=== PATIENT | male | born 1945 | race Caucasian/White ===

== ENCOUNTER → 2023-02-16 13:13 | Outpatient (BNVA) | payer MEDICARE, SELFPAY | PROVIDERS: PCP Family Medicine; Referring Provider Family Medicine; Visit Provider Internal Medicine Cardiovascular Disease | DX: J44.9 Chronic obstructive pulmonary disease, unspecified (principal); N18.30 Chronic kidney disease, stage 3 unspecified; N28.89 Other specified disorders of kidney and ureter; I50.22 Chronic systolic (congestive) heart failure; Z87.891 Personal history of nicotine dependence | CPT/HCPCS: 99203 ==

== ENCOUNTER 2023-10-13 02:19 | Observation (INO) | payer MEDICARE, SELFPAY ==
[2023-10-13] VITALS (10 sets, daily range): BP systolic 116–156; BP diastolic 67–83; PULSE 74–94; RESP 16–18; TEMP 36.3–37; O2SAT 90–96
--- NOTE | 2023-10-13 00:11 | P.HP_ITS ---
Providers/Chief Complaint 2 Admitting Physician: Paul Gunn MD Primary Care Provider: Tyree Borja History of Present Illness Nic Santizo is a 78 year old male who presented to [facility] after getting CT scan of head which was ordered by the primary care physician for his slurred speech and headache, he has been experiencing slurred speech for 3 days and headache for last 7 days without any fever, nausea or vomiting he has been getting weaker. [facility] Dr. Sánchez called me to admit the patient because teleneurologist recommended finishing the workup for stroke. As per my conversation with the [facility] patient has normal CBC and BMP with normal chest x-ray patient is alert oriented x 3 NIH score of 2 for slurred speech and mild weakness he saturating 98% room air heart rate in 80s blood pressure 112/[address] showed chronic ischemic changes he was deemed not a tPA candidate At the time of evaluation patient is not endorsing any significant sign of slurred speech, he is stating that his headache is not bad, he does not have any focal deficit He is experiencing wheezing Stating that he currently is not smoking does not use oxygen, uses a cane to ambulate at home, lives with his , patient is denying chest pain, diarrhea, diabetes Labs reviewed from other hospital, creatinine was 1.8 I will not be able to CTA head and neck at this point Chest x-ray showed left lower lobe atelectasis without significant infiltrate or consolidations Review of Systems 2 Const: Denies: fever(s) Eyes: Denies: change in vision ENMT: Denies: throat pain Card: Denies: chest pain Resp: Reports: dyspnea GI: Denies: abdominal pain Neuro: Reports: headache(s) and Slurred speech present Medications/Allergies Home Medications Medication Instructions Recorded Confirmed Last Taken Type albuterol sulfate 90 mcg/actuation 2 puff inhalation Q6H PRN wheezing 02/16/23 10/13/23 Unknown History aerosol inhaler or shortness of breath aspirin 81 mg tablet,delayed 81 mg PO DAILY 02/16/23 10/13/23 Unknown History release (Adult Aspirin Regimen) atorvastatin 40 mg tablet 40 mg PO BEDTIME 02/16/23 10/13/23 Unknown History fluticasone propionate 50 2 spray intranasal DAILY PRN Nasal 02/16/23 10/13/23 Unknown History mcg/actuation nasal Congestion spray,suspension lisinopril 20 mg tablet 20 mg PO DAILY 02/16/23 10/13/23 Unknown History nitroglycerin 0.4 mg sublingual 0.4 mg sublingual Q5M PRN Chest 02/16/23 10/13/23 Unknown History tablet Pain omeprazole 40 mg capsule,delayed 40 mg PO DAILY 02/16/23 10/13/23 Unknown History release tamsulosin 0.4 mg capsule 0.8 mg PO BEDTIME 02/16/23 10/13/23 Unknown History amlodipine 5 mg tablet 5 mg PO DAILY 10/13/23 10/13/23 Unknown History cyclobenzaprine 5 mg tablet 5 mg PO TID PRN spasm or pain 10/13/23 10/13/23 Unknown History metoprolol succinate 25 mg 25 mg PO DAILY 10/13/23 10/13/23 Unknown History tablet,extended release 24 hr Allergies Allergy/AdvReac Type Severity Reaction Status Date / Time No Known Allergies Allergy Verified 10/13/23 02:56 PFSH Acute 2 PFSH: Medical History COPD (chronic obstructive pulmonary disease) Right renal mass Chronic systolic (congestive) heart failure Stage 3 chronic kidney disease Social History Smoking and tobacco/nicotine status: former use of tobacco/nicotine Quit status (tobacco/nicotine): has quit using Year quit tobacco: 40 plus years Alcohol intake: current Alcohol intake frequency: few times a month Alcohol type: beer Substance/Drug Use: never Physical Exam 2 Narrative: NIH 1 for mild slurring of speech, Nonfocal neuroexam GCS 15 Able to move his extremities Short attention span Patient is wanting to sleep during my evaluation Complaining of headache Do not see any active signs of meningitis S1, S2 , Active wheezing Currently on room air Distended abdomen Morbid obesity edema of legs Data 10/13/23 05:17 10/13/23 05:17 A&P Assessment and plan (1) Stroke: (2) Stage 3 chronic kidney disease: (3) COPD (chronic obstructive pulmonary disease): Plan Slurred speech and headache for last 3 to 5 days Patient was evaluated by teleneurologist DR GARCIA at [facility] who recommended MRI and stroke workup Will request MRI, MRV Will request PT OT and ST Permissive hypertension for next 24 hours Continue aspirin and atorvastatin I will not be able to get CTA head and neck because creatinine is 1.8 NIH is 1 Will check B12, hemoglobin A1c, EKG and troponin Hypertension: Patient takes lisinopril, metoprolol and amlodipine Holding lisinopril for now Morbid obesity, underlying COPD? Patient is actively wheezing Add IV steroids for now Add incentive spirometer, atelectasis evident on chest x-ray Patient lives with his , uses a cane Will keep him on pur?ed diet Full code DVT prophylaxis on board Attestations 2 Medical Necessity Statement*: Anticipating discharge within 48 hours Diagnoses Stroke I63.9 Stage 3 chronic kidney disease N18.30 COPD (chronic obstructive pulmonary disease) J44.9
--- NOTE | 2023-10-13 00:14 | MR_ITS ---
WS: [id number] MR VENOGRAPHY HEAD WITHOUT GADOLINIUM ENHANCEMENT INDICATION: Headache 7 days TECHNIQUE: MR venography without gadolinium enhancement FINDINGS: Normal sagittal sinus. Straight sinus is patent. Normal internal cerebral veins. RIGHT transverse and sigmoid sinuses are patent. Hypoplastic normal variant LEFT sigmoid and transverse sinuses. MR/[place] [id number] IMPRESSION: 1. No evidence of dural sinus thrombosis
--- NOTE | 2023-10-13 00:14 | MR_ITS ---
WS: [id number] MRI HEAD WITHOUT CONTRAST TECHNIQUE: Sagittal T1, T2 axial, T2 axial FLAIR, axial and coronal T1 images, axial susceptibility w eighted imaging, axial diffusion weighted images, and coronal T2 images were obtained. CLINICAL INFORMATION: CVA COMPARISON: None. FINDINGS: Multiple patchy foci of restricted diffusion within the RIGHT centrum semiovale extending into the RI GHT frontal and parietal lobes. Additional patchy foci of restricted diffusion involving the posterio r RIGHT temporal lobe. Findings are compatible with multiple acute foci of ischemia suspicious for em bolic etiology. Mild associated edema associated with the areas of acute ischemia. No significant mass effect or midl ine shift. Advanced chronic small vessel changes with multiple chronic lacunar infarcts in the perive ntricular white matter. Moderate parenchymal volume loss. Chronic lacunar infarcts in the jagdish. Chron ic lacunar infarcts in the cerebellum. Chronic cortical infarcts in the LEFT cerebellum with associat ed encephalomalacia and gliosis. No hemosiderin on the susceptibly weighted images. Normal optic chiasm and pituitary infundibulum. Mo derate symmetric atrophy temporal lobes and hippocampal formations.. MR/MR head wo con* [id number] IMPRESSION: 1. Numerous scattered foci of acute ischemia involving the RIGHT frontal and p arietal lobes and RIGHT centrum semiovale. This extends into the RIGHT temporal lobe worse involving the dorsal superior RIGHT temporal lobe. Findings suspici ous for embolic etiology. 2. No significant mass effect or midline shift. 3. Advanced vessel changes with mild to moderate parenchymal volume loss. 4. Numerous chronic infarcts described above. Notified Dr. Ndiaye at 10/13/2023 11:11 AM. Also note accompanying MR venogram was not performed due to patient motion
--- NOTE | 2023-10-13 03:25 | PC.NURSE ---
Dr. Gunn notified that patient has arrived to the floor.
--- NOTE | 2023-10-13 03:35 | PC.NURSE ---
Multivitamin and Lasix both listed on patient's home medication list from [facility]. Patient's states that he does not take these anymore.
[2023-10-13 06:05] LABS: Basophils # 0.1 10^3/uL (0.0-0.1); Basophils % 0.6 %; Eosinophils # 0.6 10^3/uL (0.0-0.8); Eosinophils % 5.6 %; Hematocrit 47.8 % (37-53); Lymphocytes # 2.8 10^3/uL (0.8-4.8); Mean Corpuscular HGB Conc 33.9 g/dL (30-55); Mean Corpuscular Hemoglobin 30.5 pg (27-33); Mean Platelet Volume 12.6 fL (7.4-10.4); Monocytes # 0.9 10^3/uL (0.2-0.9); Monocytes % 8.8 %; Neutrophils # 5.42 10^3/uL (1.8-7.7); Neutrophils % 55.4 %; Nucleated Red Blood Cells % 0 %; Platelet Count 166 10^3/cmm (157-399); Red Blood Count 5.31 10^6/uL (3.85-5.65); Red Cell Distribution Width 12.5 % (12.1-15.1); White Blood Count 9.79 10^3/uL (3.29-11.43)
--- NOTE | 2023-10-13 06:18 | USCV_ITS ---
Nic Santizo Age: 78 Gender: M : 1945 Exam Date: 10/13/2023 07:50 Ordering Phys: Paul Gunn MD Technologist: SURESH Exam Location: [facility] – [place] Indication: CVA. ECHO WITH BUBBLES BP: 147 / 77 HR: Rhythm: Sinus Technical Quality: MEASUREMENTS (Male / Female) Normal Values 2D ECHO LVOT Diameter 2.0 cm LV Ejection Fraction MOD 2C 66.3 % LV Ejection Fraction 2C AL 67.0 % RA Systolic Volume 4C AL 40.8 ml RA Systolic Volume 4C MOD 39.1 ml LA Sys Volume AL 54.2 cm cubed LA Sys Volume Index AL 20.5 cm cubed/m squared IVC Diameter 1.5 cm DOPPLER AV Peak Velocity 213.0 cm/s LVOT Peak Velocity 95.0 cm/s AV Area Cont Eq vti 1.3 cm squared AV Area Cont Eq pk 1.4 cm squared MV Peak Velocity 104.0 cm/s MV Area PHT 3.0 cm squared Mitral E to A Ratio 0.8 TR Peak Velocity 119.0 cm/s TR Peak Gradient 5.7 mmHg TR Mean Velocity 94.0 cm/s TR Mean Gradient 3.8 mmHg TR Velocity Time Integral 35.5 cm TV Peak E Velocity 47.0 cm/s Right Atrial Pressure 3.0 mmHg Pulmonary Artery Systolic Pressu 8.7 mmHg PV Peak Velocity 74.0 cm/s RV Ejection Time 0.3 s FINDINGS Left Ventricle Possibly normal LV size and ejection fraction around 65%. Segmental wall motion analysis difficult because of the poor ultrasonic window Right Ventricle Possibly of normal size Right Atrium Possibly normal size Left Atrium Mildly dilated Mitral Valve No gross abnormalities noted Aortic Valve Thickened aortic valve. Tricuspid Valve Tricuspid valve not well visualized. Pulmonic Valve Pulmonic valve not well visualized. Pericardium No pericardial effusion. Aorta Normal aortic annulus size. IVC Inferior vena cava not visualized. CONCLUSIONS Possibly normal LV size and ejection fraction around 65%. Segmental wall motion analysis difficult because of the poor ultrasonic window. Mildly dilated left atrium. Features of aortic valve sclerosis There is no pericardial effusion. Technically difficult study because of the poor ultrasonic window. Dr Jono Rivas MD [facility] (Electronically Signed) Final Date: 13 October 2023 14:54 S
[2023-10-13 06:22] LABS: Estmated Average Glucose 123; Hemoglobin A1C 5.9 % (4.0-6.0)
[2023-10-13 06:25] LABS: Anion Gap 15.8 (5-19); Blood Urea Nitrogen 30 mg/dL (8-23); Calcium 9.2 mg/dL (8.5-10.5); Carbon Dioxide 23 mmol/L (22-29); Chloride 97 mmol/L (98-107); Creatinine Clr Calc Pharmacy 48.7584; Glucose 94 mg/dL (65-115); Osmolality Calculated 280 mOsm/kg (285-295); Phosphorus 4.4 mg/dL (2.5-4.5); Potassium 3.8 mmol/L (3.5-5.1); Sodium 132 mmol/L (136-145)
--- NOTE | 2023-10-13 06:26 | ECG_ITS ---
[facility] Test Date: 2023-10-13 Pat Name: Nic Santizo Department: Room: 276 Gender: Male [employer]: : 1945 Requested By: Paul Gunn Order Number: [id number] Peggy MD: Paulino Flowers M.D. Measurements Intervals [place] Rate: 72 P: 21 IL: 224 QRS: -23 QRSD: 108 T: 59 QT: 422 QTc: 465 Interpretive Statements SINUS RHYTHM WITH FIRST DEGREE AV BLOCK WITH OCCASIONAL VENTRICULAR PREMATURE COMPLEXES BORDERLINE LEFT AXIS DEVIATION [QRS AXIS < -20] NONSPECIFIC ST & T-WAVE ABNORMALITY No previous ECG available for comparison Electronically Signed On 10-13-2023 9:43:33 CDT by Paulino Flowers M.D. [id number]
[2023-10-13 06:42] LABS: Vitamin B12 363 pg/mL (232-1245)
[2023-10-13 07:06] LABS: Troponin T (5th) Once 24 ng/L (0-15)
[2023-10-13] MEDS: sennosides-docusate Tablet 1 TAB PO (08:58)
[2023-10-13] MEDS: metoprolol succinate ER (24 HR) 25 mg Tablet PO (08:58)
[2023-10-13] MEDS: tamsulosin 0.4 mg Capsule PO (08:58)
[2023-10-13] MEDS: methylPREDNISolone sod succ 40 mg/mL INJ IVP (08:59)
[2023-10-13] MEDS: aspirin 81 mg EC Tablet PO (08:59)
[2023-10-13] MEDS: heparin 5,000 unit/mL INJ 1 mL 5000 UNIT SUBCUT (08:59)
[2023-10-13] MEDS: amlodipine 5 mg Tablet PO (08:59)
[2023-10-13] MEDS: pantoprazole DR 40 mg Tablet PO (08:59)
[2023-10-13] MEDS: atorvastatin 40 mg Tablet 80 MG PO (08:59)
--- NOTE | 2023-10-13 12:46 | P.CONIM_ITS ---
Providers/Reason For Consult 2 Consulting Physician/Specialty*: Guillaume Pham MD neurology and epilepsy Reason for Consult*: Embolic strokes associated with balance difficulty and dizziness Attending Physician: Mariama Ndiaye MD Primary Care Provider: Tyree Borja History of Present Illness History of Present Illness Nic Santizo is a 78 year old male with a history of congestive heart failure, chronic stage III kidney disease, right renal mass, and chronic obstructive pulmonary disease. The patient was seen in an emergency room at another facility secondary to complaints of balance difficulty and dizziness 3 days prior to admission. The patient was referred to [facility] for further treatment. Head MRI was obtained on 10/13/2023 and revealed. Numerous scattered foci of acute ischemia involving the RIGHT frontal and parietal lobes and RIGHT centrum semiovale. This extends into the RIGHT temporal lobe worse involving the dorsal superior RIGHT temporal lobe. Findings suspicious for embolic etiology No significant mass effect or midline shift. Advanced vessel changes with mild to moderate parenchymal volume loss. Numerous chronic infarcts described above. As a result, a neurology consult was obtained to assist in the patient's care. Currently the patient is no apparent distress. The patient was sitting up in the recliner chair in his room. He was able to ambulate with his cane. He was slightly unsteady but able to walk without difficulty. He denied any dizziness while ambulating. Drug allergies: None Home medications: Albuterol sulfate 90 mcg accusation 2 puffs every 6 hours as needed Norvasc 5 mg p.o. daily Aspirin 81 mg p.o. daily Lipitor 40 mg p.o. daily Flexeril 5 mg p.o. 3 times daily as needed for muscle spasm Lisinopril 20 mg p.o. daily Fluticasone 50 mcg accusation nasal spray 2 sprays intranasally daily Metoprolol 25 mg p.o. daily Sublingual nitroglycerin 0.4 mg as needed Omeprazole 40 mg p.o. dailyTamsulosin 0.8 mg p.o. nightly Past medical history: Chronic obstructive pulmonary disease Right renal mass Congestive heart failure Chronic kidney disease stage III Bilateral cataract surgery Left groin injury secondary to being kicked by a horse 10 years ago Habits: The patient smoked but quit 40 years ago he reports he chews tobacco. He denied other drug use. Family history: Remarkable for a maternal grandfather who is experienced heart disease Review of Systems 2 General: Reports: 10 or more systems reviewed and unremarkable except in HPI and below Medications/Allergies Home Medications Medication Instructions Recorded Confirmed Last Taken Type albuterol sulfate 90 mcg/actuation 2 puff inhalation Q6H PRN wheezing 02/16/23 10/13/23 Unknown History aerosol inhaler or shortness of breath aspirin 81 mg tablet,delayed 81 mg PO DAILY 02/16/23 10/13/23 Unknown History release (Adult Aspirin Regimen) atorvastatin 40 mg tablet 40 mg PO BEDTIME 02/16/23 10/13/23 Unknown History fluticasone propionate 50 2 spray intranasal DAILY PRN Nasal 02/16/23 10/13/23 Unknown History mcg/actuation nasal Congestion spray,suspension lisinopril 20 mg tablet 20 mg PO DAILY 02/16/23 10/13/23 Unknown History nitroglycerin 0.4 mg sublingual 0.4 mg sublingual Q5M PRN Chest 02/16/23 10/13/23 Unknown History tablet Pain omeprazole 40 mg capsule,delayed 40 mg PO DAILY 02/16/23 10/13/23 Unknown History release tamsulosin 0.4 mg capsule 0.8 mg PO BEDTIME 02/16/23 10/13/23 Unknown History amlodipine 5 mg tablet 5 mg PO DAILY 10/13/23 10/13/23 Unknown History cyclobenzaprine 5 mg tablet 5 mg PO TID PRN spasm or pain 10/13/23 10/13/23 Unknown History metoprolol succinate 25 mg 25 mg PO DAILY 10/13/23 10/13/23 Unknown History tablet,extended release 24 hr Allergies Allergy/AdvReac Type Severity Reaction Status Date / Time No Known Allergies Allergy Verified 10/13/23 02:56 Current Medications Generic Name Dose Route Start Last Admin Trade Name Freq PRN Reason Stop Dose Admin Amlodipine Besylate 5 mg 10/13/23 09:00 10/13/23 08:59 Amlodipine 5 Mg Tablet PO 5 mg DAILY HENRY Administration Aspirin 81 mg 10/13/23 09:00 10/13/23 08:59 Aspirin 81 Mg Ec Tablet PO 81 mg DAILY HENRY Administration Atorvastatin Calcium 80 mg 10/13/23 09:00 10/13/23 08:59 Atorvastatin 40 Mg Tablet PO 80 mg DAILY HENRY Administration Methylprednisolone Sodium Succinate 40 mg 10/13/23 06:20 10/13/23 08:59 Methylprednisolone Sod Succ 40 Mg/Ml Inj IVP 40 mg DAILY HENRY Administration Metoprolol Succinate 25 mg 10/13/23 09:00 10/13/23 08:58 Metoprolol Succinate Er (24 Hr) 25 Mg Tablet PO 25 mg DAILY HENRY Administration Pantoprazole Sodium 40 mg 10/13/23 09:00 10/13/23 08:[address] 40 Mg Tablet PO 40 mg DAILY HENRY Administration Senna/Docusate Sodium 1 tab 10/13/23 09:00 10/13/23 08:58 Sennosides-Docusate Tablet PO 1 tab DAILY HENRY Administration Tamsulosin HCl 0.4 mg 10/13/23 09:00 10/13/23 08:58 Tamsulosin 0.4 Mg Capsule PO 0.4 mg DAILY HENRY Administration PFSH Acute 2 PFSH: Medical History COPD (chronic obstructive pulmonary disease) Right renal mass Chronic systolic (congestive) heart failure Stage 3 chronic kidney disease Social History Smoking and tobacco/nicotine status: former use of tobacco/nicotine Quit status (tobacco/nicotine): has quit using Year quit tobacco: 40 plus years Alcohol intake: current Alcohol intake frequency: few times a month Alcohol type: beer Substance/Drug Use: never Vitals/I&O/Wt Last Vital Signs Temp 98.3 F 10/13/23 11:47 Pulse 93 10/13/23 11:47 Resp 16 10/13/23 11:47 BP 156/76 10/13/23 11:47 Pulse Ox 95 10/13/23 11:47 O2 Del Method Room Air 10/13/23 11:47 10/12/23 10/13/23 10/13/23 22:59 06:59 14:59 Intake Total 0 / 0 360 / 360 Balance 0 / 0 360 / 360 Weight last 48 hrs Weight 291 lb 9.6 oz Weight 291 lb 3.2 oz Physical Exam 2 Narrative: The patient is a currently alert and in no apparent distress. Head normocephalic. Neck supple. Cranial nerves II through XII grossly intact. Pupils reveals signs of cataract surgery bilaterally. Pupils 3 mm round reactive to light and accommodation. Extraocular movements intact. There were no nystagmus. Motor testing 5/5 bilaterally. Gait: Patient was able to ambulate without assistance with his cane. He was slightly unsteady but ambulated without difficulty. He denied dizziness during ambulation. Deep tendon reflexes 1-2+. Sensory examination was intact to touch. Throat clear. Lungs clear. Heart regular rhythm and rate. Extremities revealed some lower extremity swelling. There was no obvious cyanosis. Data 10/13/23 05:17 10/13/23 05:17 A&P Assessment and plan (1) Embolic stroke: Impression: 1. Embolic strokes 2. Abnormal head MRI 10/13/2023 secondary to . Numerous scattered foci of acute ischemia involving the RIGHT frontal and parietal lobes and RIGHT centrum semiovale. This extends into the RIGHT temporal lobe worse involving the dorsal superior RIGHT temporal lobe. Findings suspicious for embolic etiology. 3. Chronic obstructive pulmonary disease 4. Congestive heart failure 5. End-stage renal disease, stage III 6. Right renal mass 7. Dizziness/balance difficulty improving Plan: 1. Agree with obtaining 2D echocardiogram to assess for embolic source for stroke 2. Agree with starting anticoagulation with Eliquis 3. Agree with obtaining hypercoagulable lab to assess for a hypercoagulable state 4. Fall precautions 5. Recommend OT and PT consults 6. Neurochecks per NIH stroke protocol 7. Recommend cardiac evaluation and cardiac telemetry monitoring to evaluate for arrhythmias 8. The patient is aware of the potential health risks associated with chewing tobacco Consult Attestations 2 Medical Necessity Statement: The patient was evaluated by neurology for embolic strokes Coding Level of Care Code 43340 Diagnoses Embolic stroke I63.9
--- NOTE | 2023-10-13 14:21 | PC.NURSE ---
Patients daughter, Natalie Ferrer [phone], called to get an update on patient. she wasn't listed on PHI consent. This nurse spoke with patient who stated yes, she is a nurse in [place]. she will understand everything. Patient's son Buddy Santizo [phone], also called and wanted an update on patient. I spoke with patient who gave verbal permission to speak with Buddy.
[2023-10-13 14:56] LABS: Homocysteine 21.91 umol/l (0-15)
--- NOTE | 2023-10-13 15:24 | PM.PN ---
Subjective Subjective: Today MRI taken this morning showing numerous scattered foci of acute ischemia involving the right side as detailed below. Concerning for embolic phenomenon overall. Patient denies any known history of atrial fibrillation. Reviewed past cardiology notes which do not mention any history of A-fib. Patient states he has a history of aortic aneurysm, does not recall if this is thoracic or abdominal, then also goes on to states that he has dilated heart , I am uncertain what he means exactly. Awaiting echocardiogram results. Medications: Reviewed: Yes Vitals/I&O/Wt Last Vital Signs Temp 98.3 F 10/13/23 11:47 Pulse 75 10/13/23 14:41 Resp 16 10/13/23 11:47 BP 156/76 10/13/23 11:47 Pulse Ox 95 10/13/23 11:47 O2 Del Method Room Air 10/13/23 11:47 10/13/23 10/13/23 10/13/23 06:59 14:59 22:59 Intake Total 0 / 0 360 / 360 Balance 0 / 0 360 / 360 Weight last 48 hrs Weight 132.268 kg Weight 132.086 kg Physical Exam Narrative: General: No acute distress, AO x3 HEENT: PERRLA, pupils bilaterally equal and reactive, pallors not present Chest: Normal vesicular breath sounds, no added sounds, equal good air entry bilaterally CVS: S1-S2 regular, no murmurs, no tachycardia, no gallops, no rubs Abdomen: Soft, nontender, no organomegaly, bowel sounds present Neuro: Please see neurology exam Data 10/13/23 05:17 10/13/23 05:17 A&P Assessment and plan (1) Stroke: (2) Stage 3 chronic kidney disease: (3) COPD (chronic obstructive pulmonary disease): Plan Slurred speech and headache for last 3 to 5 days Patient was evaluated by teleneurologist DR GARCIA at [facility] who recommended MRI and stroke workup Will request MRI, MRV Will request PT OT and ST Permissive hypertension for next 24 hours Continue aspirin and atorvastatin I will not be able to get CTA head and neck because creatinine is 1.8 NIH is 1 Will check B12, hemoglobin A1c, EKG and troponin Hypertension: Patient takes lisinopril, metoprolol and amlodipine Holding lisinopril for now Morbid obesity, underlying COPD? Patient is actively wheezing Add IV steroids for now Add incentive spirometer, atelectasis evident on chest x-ray Patient lives with his , uses a cane Will keep him on pur?ed diet Full code DVT prophylaxis on board Plan for today October 13, 2023. MRI today revealing numerous scattered foci of acute ischemia involving the right frontal and parietal lobes and right centrum semiovale. Changes extending into the right temporal lobe worse involving the dorsal superior right temporal lobe. Overall given multiple scattered acute strokes, concern for embolic phenomenon. Neurology consulted. Recommend to start anticoagulation with Eliquis 5 mg p.o. twice daily. Continue telemetry monitoring to assess for any underlying arrhythmias which may have contributed. Thus far patient has been in sinus rhythm. Echocardiogram with bubble study taken and currently awaited. Assess for underlying valvular abnormalities/cardiac thrombus. Start Eliquis. Hypercoagulable workup recommended with protein C protein Sbeta-2 glycoprotein, factor V Leiden mutation, lupus anticoagulant and prothrombin gene. Discontinue heparin subcutaneous prophylaxis with initiation of Eliquis. Add budesonide inhalation 0.5 mg twice daily and DuoNeb every 6 hours scheduled nebulization for COPD. Change IV steroids to prednisone 40 mg p.o. daily. Attestations Medical Necessity Statement*: Neurology consult. Echocardiogram awaited. Continue PT OT speech therapy. Coding Level of Care Code Acute Code for Chg Fwd High MDM includes number and complexity of problems actively addressed during encounter, amount and/or complexity of data reviewed/ordered and described risk of complication, morbidity or mortality of management as documented Diagnoses Stroke I63.9 Stage 3 chronic kidney disease N18.30 COPD (chronic obstructive pulmonary disease) J44.9
[2023-10-13] MEDS: ipratropium-albuterol 3 mL Neb INHALATION (19:35)
[2023-10-13] MEDS: budesonide 0.5 mg/2 mL Neb INHALATION (19:35)
[2023-10-13] MEDS: apixaban 5 mg Tablet PO (20:03)
[2023-10-14] VITALS (7 sets, daily range): BP systolic 101–150; BP diastolic 58–85; PULSE 72–88; RESP 16–18; TEMP 36.3–37; O2SAT 94–96
[2023-10-14] MEDS: aspirin 81 mg EC Tablet PO (08:48)
[2023-10-14] MEDS: predniSONE 20 mg Tablet 40 MG PO (08:48)
[2023-10-14] MEDS: apixaban 5 mg Tablet PO (08:48)
[2023-10-14] MEDS: pantoprazole DR 40 mg Tablet PO (08:48)
[2023-10-14] MEDS: amlodipine 5 mg Tablet PO (08:48)
[2023-10-14] MEDS: tamsulosin 0.4 mg Capsule PO (08:48)
[2023-10-14] MEDS: sennosides-docusate Tablet 1 TAB PO (08:48)
[2023-10-14] MEDS: metoprolol succinate ER (24 HR) 25 mg Tablet PO (08:48)
[2023-10-14] MEDS: atorvastatin 40 mg Tablet 80 MG PO (08:48)
--- NOTE | 2023-10-14 09:09 | PC.CHAP ---
Pastoral Care Encounter/Spiritual Assessment Type of Contact [] Declined horse racing manager visit [] Patient/Family/Request visit [] Outpatient visit [] Follow-up visit [] Physician referral [] Code/Alert [x] Routine visit [] Staff referral [] Actively dying [] Patient sleeping [x] Family support [] [] Out of room [] Palliative care [] [] Receiving care in room [] Pre-surgical visit [] Trauma [] Long length of stay [] ICU visit [] Other: Relational/Emotional Strength [x] Patient feels connected with others/family/visitors/staff [] Distress [] Loneliness/isolation [] Abandonment Spirituality of Patient [x] Person of Wendy [] Attends Mu-Ism of their Wendy [x] Believes in Prayer [] Reads Bible or Methodist materials [] There are Spiritual issues to be addressed Cuff Cutter Interventions [x] Prayer [x] Active listening [] Non-anxious presence [x] Spiritual/emotional support [] Crisis/trauma care [] Spiritual counseling [] Bereavement support [] Provided bereavement packet [] Provided Bible/devotional materials [] Provided toy/stuffed animal, coloring book to patient or family member [] Provided Communion [] Anointing/[place] [] Salvation [x] Completed spiritual assessment [] Other: Impact on Illness or Injury [] Angry [] Fearful [] Anxious [] Often cries [] Exhaustion [] Unable to work [] Unable to attend anabaptism [] Unable to walk/stand [] Unable to read [] Unable to drive [] Unable to eat/drink [] Unable to sleep [] Unable to be with family [] Patient intubated [] Other: Summary Time spent with patient 5 min
[2023-10-14] MEDS: budesonide 0.5 mg/2 mL Neb INHALATION (09:25)
[2023-10-14] MEDS: ipratropium-albuterol 3 mL Neb INHALATION (09:25)
--- NOTE | 2023-10-14 12:11 | USCV_ITS ---
Nic Santizo Age: 78 Gender: M : 1945 Exam Date: 10/14/2023 13:04 Ordering Phys: Mariama Ndiaye MD Technologist: VIVIANA Exam Location: [facility] [place] Indication: Stroke Risk Factors: Previous Vascular Surgery: Right Brachial BP: / Left Brachial BP: / Right Left Velocity (cm/s) Spectral Plaque Velocity (cm/s) Spectral Plaque Syst/Diast Broadening Syst/Diast Broadening 50.50/ 11.00 Prox CCA 66.60 / 15.70 53.20/ 13.80 Mid CCA 74.00 / 10.60 69.40/ 16.10 Distal CCA 55.40 / 11.40 31.00/ 11.50 Prox ICA 69.40 / 15.20 29.30/ 9.40 Mid ICA 55.30 / 17.10 34.20/ 11.30 Distal ICA 46.90 / 19.10 77.50 ECA 127.30 0.50 ICA/CCA 1.30 Vertebral Antegrade 30.10/ 10.50 cm/s / cm/s Tri Subclavian Tri 104.3 164.7 0 0 CONCLUSIONS Right ICA stenosis <50%. Moderate atheromatous plaque right carotid bulb/ICA. Left ICA stenosis <50%. Moderate atheromatous plaque left carotid bulb/ICA. Normal antegrade Doppler flow noted in the right vertebral artery. Normal antegrade Doppler flow noted in the left vertebral artery. Pablo Mai MD (Electronically Signed) Final Date: 14 October 2023 15:26 S
--- NOTE | 2023-10-14 14:50 | P.DS_ITS ---
Discharge Providers Date of Admission: 10/13/23 02:19 Date of Discharge: October 14, 2023 Attending Provider at Admission: Paul Gunn MD Attending Provider at Discharge: Mariama Ndiaye MD Primary Care Provider: Tyree Borja Diagnoses at Discharge Discharge Diagnosis (1) Stroke: Status: Acute (2) Stage 3 chronic kidney disease: Status: Acute (3) COPD (chronic obstructive pulmonary disease): Status: Acute Hospital Course Hospital Course Patient is an 78-year-old male who had presented to an outside ER after presenting there with 3 days of headache and slurred speech. He received a CT scan at [facility] [place] which was overall unremarkable. He was transferred here for further stroke evaluation. [place] [facility] [place] showed numerous scattered foci of acute ischemia involving the right frontal and par ietal lobes and right centrum semiovale. Changes extending into the right temporal lobe worse involving the dorsal superior right temporal lobe. Overall given multiple scattered acute strokes, concern for embolic phenomenon. Neurology consulted. Recommend to start anticoagulation with Eliquis 5 mg p.o. twice daily. Patient was on telemetry monitoring during the course of his hospital stay. There was no underlying arrhythmia detected. Rhythm was sinus with VPCs. Event monitor for 3 weeks has been ordered at the time of discharge. Patient informed that he will be contacted by [facility] to coordinate placement of the event monitor. Echocardiogram with bubble study was taken which showed normal LVEF of 65%. Difficult segmental wall motion analysis due to poor ultrasonic windows. There were features of aortic valve sclerosis without pericardial effusion. Carotid artery ultrasound was additionally ordered, results are awaited at the time of discharge. Hypercoagulable workup was ordered which is currently awaited at the time of discharge. Patient also had acute on chronic COPD exacerbation for which she received scheduled nebulization with DuoNeb and budesonide and received a short course of prednisone at the time of discharge. Patient is recommended to follow-up In neurology clinic in 2 weeks to review results of pending studies including carotid artery ultrasound, hypercoagulable workup and follow-up from acute stroke. Physical therapy occupational therapy and speech therapy evaluations were completed prior to discharge. Patient was noted to be walking independently in his room using a straight cane. He showed fair functional endurance for occupational therapy. He was tolerating an oral diet without significant difficulty. He is being discharged today in stable state with aspirin, atorvastatin, and Eliquis 5 mg p.o. twice daily added to his usual medications. Physical Exam Narrative: General: No acute distress, AO x3 HEENT: PERRLA, pupils bilaterally equal and reactive, pallors not present Chest: Normal vesicular breath sounds, no added sounds, equal good air entry bilaterally CVS: S1-S2 regular, no murmurs, no tachycardia, no gallops, no rubs Abdomen: Soft, nontender, no organomegaly, bowel sounds present Neuro: No focal deficits, no facial deformity, AO x3, power 5/5 in all limbs Discharge Data Studies Completed and Pending Completed Studies During Hospitalization Category Date Time Status MR head wo con* [id number] Routine MRI 10/13/23 00:14 Completed MRV [[place] [id number]] Routine MRI 10/13/23 00:14 Completed CV. echo w/w bubble cont [id number] Routine Ultrasound 10/13/23 06:18 Completed Pending at discharge Category Date Time Status Beta 2 Glycoprotein I IGG AB Routine Lab 10/13/23 15:13 Received Factor 5 Leiden Mutation Routine Lab 10/13/23 15:13 Received Lupus Inhibitor Panel Anticoag Routine Lab 10/13/23 15:13 Received PROTEIN C, ACTIVITY Routine Lab 10/13/23 15:13 Received PROTEIN S, ACTIVITY Routine Lab 10/13/23 15:13 Received PROTHROMBIN GENE [PROTHROMBIN (FACTOR II) [id number]] Lab 10/13/23 15:13 Received Routine CV carotid duplex BI* [id number] Routine Ultrasound 10/14/23 12:11 Taken Radiology Impressions Head MRI 10/13/23 00:14 IMPRESSION: 1. Numerous scattered foci of acute ischemia involving the RIGHT frontal and parietal lobes and RIGHT centrum semiovale. This extends into the RIGHT temporal lobe worse involving the dorsal superior RIGHT temporal lobe. Findings suspicious for embolic etiology. 2. No significant mass effect or midline shift. 3. Advanced vessel changes with mild to moderate parenchymal volume loss. 4. Numerous chronic infarcts described above. Notified Dr. Ndiaye at 10/13/2023 11:11 AM. Also note accompanying MR venogram was not performed due to patient motion Head/Brain Mag Res Venography 10/13/23 00:14 IMPRESSION: 1. No evidence of dural sinus thrombosis Laboratory Results WBC 9.79 10^3/uL (3.29-11.43) 10/13/23 05:17 RBC 5.31 10^6/uL (3.85-5.65) 10/13/23 05:17 Hgb 16.20 g/dL (11.27-16.99) 10/13/23 05:17 Hct 47.8 % (37-53) 10/13/23 05:17 MCV 90.0 fl (82-101) 10/13/23 05:17 MCH 30.5 pg (27-33) 10/13/23 05:17 MCHC 33.9 g/dL (30-55) 10/13/23 05:17 RDW 12.5 % (12.1-15.1) 10/13/23 05:17 Plt Count 166 10^3/cmm (157-399) 10/13/23 05:17 MPV 12.6 fL (7.4-10.4) H 10/13/23 05:17 Neut % (Auto) 55.4 % 10/13/23 05:17 Lymph % (Auto) 29.0 % 10/13/23 05:17 [place] % (Auto) 8.8 % 10/13/23 05:17 Eos % (Auto) 5.6 % 10/13/23 05:17 Baso % (Auto) 0.6 % 10/13/23 05:17 Neut # (Auto) 5.42 10^3/uL (1.8-7.7) 10/13/23 05:17 Lymph # (Auto) 2.8 10^3/uL (0.8-4.8) 10/13/23 05:17 [place] # (Auto) 0.9 10^3/uL (0.2-0.9) 10/13/23 05:17 Eos # (Auto) 0.6 10^3/uL (0.0-0.8) 10/13/23 05:17 Baso # (Auto) 0.1 10^3/uL (0.0-0.1) 10/13/23 05:17 Nucleated RBC % (auto) 0 % 10/13/23 05:17 Nucleated RBCs # 0.0 /100WBC 10/13/23 05:17 Sodium 132 mmol/L (136-145) L 10/13/23 05:17 Potassium 3.8 mmol/L (3.5-5.1) 10/13/23 05:17 Chloride 97 mmol/L (98-107) L 10/13/23 05:17 Carbon Dioxide 23 mmol/L (22-29) 10/13/23 05:17 Anion Gap 15.8 (5-19) 10/13/23 05:17 BUN 30 mg/dL (8-23) H 10/13/23 05:17 Creatinine 1.7 mg/dL (0.7-1.2) H 10/13/23 05:17 GFR Calculation Not Reportable 10/13/23 05:17 Glucose 94 mg/dL (65-115) 10/13/23 05:17 Estimat Average Glucose 123 10/13/23 05:17 Hemoglobin A1c 5.9 % (4.0-6.0) 10/13/23 05:17 Calculated Osmolality 280 mOsm/kg (285-295) L 10/13/23 05:17 Calcium 9.2 mg/dL (8.5-10.5) 10/13/23 05:17 Phosphorus 4.4 mg/dL (2.5-4.5) 10/13/23 05:17 Magnesium 2.0 mg/dL (1.7-2.3) 10/13/23 05:17 Troponin T 5th Gen ng/L 24 ng/L (0-15) H 10/13/23 05:17 Vitamin B12 363 pg/mL (232-1245) 10/13/23 05:17 Homocysteine 21.91 umol/l (0-15) H 10/13/23 05:17 Vitals Last Vital Signs Temp 98.6 F 10/14/23 13:59 Pulse 73 10/14/23 13:59 Resp 16 10/14/23 13:59 BP 148/73 10/14/23 13:59 Pulse Ox 94 10/14/23 13:59 O2 Del Method Room Air 10/14/23 11:35 Discharge Plan Discharge Patient Disposition: Home Health Service Condition: Stable Prescriptions: New prednisone 20 mg Tablet 40 mg PO DAILY 5 Days Qty: 10 0RF Eliquis 5 mg Tablet 5 mg PO BID@0900,2100 30 Days Qty: 60 0RF Continued albuterol sulfate 90 mcg/actuation HFA aerosol inhaler 2 puff inhalation Q6H PRN (Reason: wheezing or shortness of breath) aspirin [Adult Aspirin Regimen] 81 mg tablet,delayed release (DR/EC) 81 mg PO DAILY atorvastatin 40 mg tablet 40 mg PO BEDTIME fluticasone propionate 50 mcg/actuation spray,suspension 2 spray intranasal DAILY PRN (Reason: Nasal Congestion) Rx Instructions: administer into each nostril lisinopril 20 mg tablet 20 mg PO DAILY nitroglycerin 0.4 mg tablet, sublingual 0.4 mg sublingual Q5M PRN (Reason: Chest Pain) Rx Instructions: do not exceed 3 doses per episode omeprazole 40 mg capsule,delayed release(DR/EC) 40 mg PO DAILY tamsulosin 0.4 mg capsule 0.8 mg PO BEDTIME amlodipine 5 mg Tablet 5 mg PO DAILY metoprolol succinate 25 mg Tablet Extended Release 24 Hr 25 mg PO DAILY cyclobenzaprine 5 mg Tablet 5 mg PO TID PRN (Reason: spasm or pain) Discharge Orders: Discharge Order (Routine); Ordered 10/14/23 Ordered By: Mariama Ndiaye Other Ambulatory Orders: MCT/Event Monitor 21 Days (Routine) Timeframe: 1 Week Facility: [facility] - Location: Radiology Ordered By: Mariama Ndiaye Referrals: [facility] [Outside] Guillaume Pham MD [Physician] - 2 weeks (We have notified your physician's clinic of the need for a follow-up appointment to be scheduled. If you have not heard from them within the next 2 business days, please call them directly. ) Tyree Borja [Primary Care Provider] - 10/19/23 2:20 pm Discharge Diet: Usual diet Discharge Activity: Resume usual activity Patient Instructions: Prednisone (By mouth), Apixaban (By mouth), Stroke (GEN), Opioid Safety, Stroke Stoplight Activity Restrictions/Additional Instructions: 21 Day event monitor sceduled for 10/26/23 @3 pm at [facility] Discharge Attestations Time Spent in Discharge Care*: greater than 30 min Quality Metrics Clinical Quality Measures [ Cerebrovascular Accident { Contraindication to Antithrombotic: None; antithrombotic prescribed; Contraindication to Anticoagulation: None; anticoagulation prescribed; Contraindication to Statin: None; Statin prescribed;}] Coding Level of Care Code Acute Code for [facility] Fwd Diagnoses Stroke I63.9 Stage 3 chronic kidney disease N18.30 COPD (chronic obstructive pulmonary disease) J44.9
[2023-10-14 20:30] LABS: PTT-LA-Screen 40 sec (< OR = 40)
[2023-10-16 03:54] LABS: Beta 2 Glycoprotein IGG <2.0 U/mL
[2023-10-16 19:25] LABS: PROTEIN C, ACTIVITY 89 % normal (70-180)
[2023-10-16 21:48] LABS: PROTEIN S, ACTIVITY 72 % normal (70-150)
[2023-10-20 14:45] LABS: Factor 5 Leiden Mutation NEGATIVE; PROTHROMBIN (FACTOR II) 20210G NEGATIVE
== END 2023-10-14 14:02 | disposition home health service (06) ==
PROVIDERS: Admitting Provider Internal Medicine; PCP Family Medicine; Visit Provider Student in an Organized Health Care Education/Training Program
DX: I63.9 Cerebral infarction, unspecified (principal); I13.0 Hypertensive heart and chronic kidney disease with heart failure and stage 1 through stage 4 chronic kidney disease, or unspecified chronic kidney disease; N18.30 Chronic kidney disease, stage 3 unspecified; I50.22 Chronic systolic (congestive) heart failure; J44.9 Chronic obstructive pulmonary disease, unspecified; Z87.891 Personal history of nicotine dependence; R29.701 NIHSS score 1; E66.01 Morbid (severe) obesity due to excess calories; Z68.39 Body mass index [BMI] 39.0-39.9, adult
CPT/HCPCS: 36415; 70544; 70551; 80048; 81241; 82607; 83036; 83090; 83735; 84100; 84484; 85025; 85210; 85303; 85306; 85613; 85730; 86146; 92523; 92610; 93005; 93880; 94640; 96372; 97161; 97165; C8929; G0378; G0379; J1644; J2919; J7512; J7626

== ENCOUNTER → 2023-10-26 10:00 | Outpatient (BNVA) | payer MEDICARE, SELFPAY | PROVIDERS: PCP Family Medicine; Referring Provider Family Medicine; Visit Provider Psychiatry & Neurology Neurology | DX: Z86.73 Personal history of transient ischemic attack (TIA), and cerebral infarction without residual deficits (principal); I65.23 Occlusion and stenosis of bilateral carotid arteries; R79.89 Other specified abnormal findings of blood chemistry; I49.9 Cardiac arrhythmia, unspecified; Z79.01 Long term (current) use of anticoagulants | CPT/HCPCS: 99212 ==

== ENCOUNTER 2023-11-19 09:01 | Oncology outpatient (recurring) (ONCR) | payer MEDICARE, SELFPAY ==
[2023-11-19 10:31] LABS: Basophils # 0.1 10^3/uL (0.0-0.1); Basophils % 0.8 %; Eosinophils # 0.4 10^3/uL (0.0-0.8); Hematocrit 48.3 % (37-53); Lymphocytes # 2.3 10^3/uL (0.8-4.8); Lymphocytes % 26.7 %; Mean Corpuscular HGB Conc 33.5 g/dL (30-55); Mean Corpuscular Hemoglobin 30.5 pg (27-33); Mean Corpuscular Volume 90.8 fl (82-101); Monocytes # 0.6 10^3/uL (0.2-0.9); Monocytes % 7.3 %; Neutrophils # 5.05 10^3/uL (1.8-7.7); Neutrophils % 59.6 %; Nucleated Red Blood Cells % 0 %; Platelet Count 186 10^3/cmm (157-399); Red Blood Count 5.32 10^6/uL (3.85-5.65); Red Cell Distribution Width 13.2 % (12.1-15.1); White Blood Count 8.47 10^3/uL (3.29-11.43)
[2023-11-19 10:47] LABS: Alanine Aminotransferase 18 U/L (0-41); Albumin Level 4.1 g/dL (3.5-5.2); Alkaline Phosphatase 84 U/L (40-130); Aspartate Amino Transferase 17 U/L (0-40); Blood Urea Nitrogen 20 mg/dL (8-23); Calcium 9.1 mg/dL (8.5-10.5); Carbon Dioxide 23 mmol/L (22-29); Chloride 103 mmol/L (98-107); Creatinine Clr Calc Pharmacy 57.6702; Glucose 114 mg/dL (65-115); Osmolality Calculated 291 mOsm/kg (285-295); Sodium 139 mmol/L (136-145); Total Bilirubin 0.8 mg/dL (0.15-1.2); Total Protein 7.1 g/dL (6.6-8.7)
[2023-11-24 03:00] LABS: CARDIOLIPIN AB (IGA) 3.2 APL-U/mL; CARDIOLIPIN AB (IGG) 2.7 GPL-U/mL; CARDIOLIPIN AB (IGM) <2.0 MPL-U/mL
[2023-11-25 20:04] LABS: Beta 2 Glycoprotein IGA <2.0 U/mL (<20.0); Beta 2 Glycoprotein IGG <2.0 U/mL (<20.0); Beta 2 Glycoprotein IGM <2.0 U/mL (<20.0)
== END 2023-12-04 23:59 | disposition home or self-care (01) ==
LOC: ONCMED 09:03
PROVIDERS: PCP Family Medicine; Visit Provider Internal Medicine Medical Oncology
DX: R79.89 Other specified abnormal findings of blood chemistry (principal); I63.9 Cerebral infarction, unspecified
CPT/HCPCS: 36415; 80053; 85025; 86146; 86147; 99204